=== PATIENT | female | born 1945 | race Caucasian/White ===

== ENCOUNTER 2022-03-30 20:50 | Emergency (ER) | payer OTHER, MEDICARE ==
[2022-03-30 21:12] VITALS: BP 101/55; PULSE 78; TEMP 97.6; BMI 33.2
[2022-03-30] MEDS ORDERED: methylPREDNISolone NA SUCC 125 MG/2 ML VIAL IVPB ONE (21:40)
[2022-03-30] MEDS ORDERED: FAMOTIDINE 20 MG/50 ML IVPB 20 MG/50 ML MG IVPB ONE ×2 (21:40→21:53)
[2022-03-30] MEDS ORDERED: methylPREDNISolone NA SUCC 125 MG/2 ML VIAL ONE (21:52)
[2022-03-30] MEDS ORDERED: NITROFURANTOIN MACROCRYSTAL 50 MG CAPSULE (FP) PO ONE (23:45)
== END 2022-03-31 00:26 | disposition home or self-care (01) ==
LOC: JER 20:50
PROC: 3E033NZ Introduction of Analgesics, Hypnotics, Sedatives into Peripheral Vein, Percutaneous Approach (ICD-10-PCS; principal; 2022-03-30)
PROC: 3E033GC Introduction of Other Therapeutic Substance into Peripheral Vein, Percutaneous Approach (ICD-10-PCS; 2022-03-30)
PROC: 3E033GC Introduction of Other Therapeutic Substance into Peripheral Vein, Percutaneous Approach (ICD-10-PCS; 2022-03-30)
DX: T78.40XA Allergy, unspecified, initial encounter (principal)
CPT/HCPCS: 96365; 96375; 99284-25